=== PATIENT | female | born 1950 | race American Indian/Alaskan Native ===

== ENCOUNTER 2016-09-28 00:18 | Emergency (ER) | payer MEDICARE ==
[2016-09-28] MEDS ORDERED: CATAPRES ONE (00:46)
[2016-09-28] MEDS ORDERED: CATAPRES PO ONE (01:00)
[2016-09-28 01:15] LABS: Eosinophils % (Auto) 1.5 % (0.0-4.3); Hematocrit 41.6 % (30.3-42.9); Hemoglobin 13.7 gm/dl (10.1-14.3); Mean Corpuscular HGB Conc 33 % (30-34); Mean Corpuscular Hemoglobin 28 pg (28-32); Mean Corpuscular Volume 84 fl (79-97); Platelet Count 202 K/mm3 (140-440); Red Blood Count 4.97 M/mm3 (3.65-5.03); Red Cell Distribution Width 15.3 % (13.2-15.2); White Blood Count 5.4 K/mm3 (4.5-11.0)
[2016-09-28 01:26] LABS: Partial Thromboplastin Time 31.8 Sec. (24.2-36.6)
[2016-09-28 01:38] LABS: Alanine Aminotransferase 31 units/L (7-56); Albumin 3.7 g/dL (3.9-5); Albumin/Globulin Ratio 0.9 %; Alkaline Phosphatase 91 units/L (35-129); Anion Gap 16 mmol/L; BUN/Creatinine Ratio 8.88; Blood Urea Nitrogen 8 mg/dL (7-17); Carbon Dioxide 25 mmol/L (22-30); Chloride 97.3 mmol/L (98-107); Glucose 397 mg/dL (65-100); Lipase 48 units/L (13-60); Potassium 4.1 mmol/L (3.6-5.0); Sodium 134 mmol/L (137-145); Total Protein 7.9 g/dL (6.3-8.2)
[2016-09-28 02:39] LABS: Bacteria,Urine 1+ /HPF (Negative)
[2016-09-28 02:47] LABS: Bilirubin,Urine NEG (Negative); Blood,Urine NEG (Negative); Ketones,Urine NEG (Negative); Leukocyte Esterase,Urine SM (Negative); Mucus,Urine FEW /HPF; Nitrite,Urine NEG (Negative); Protein,Urine <15 mg/dL mg/dL (Negative); Urobilinogen,Urine < 2.0 mg/dL (<2.0)
[2016-09-28 03:09] VITALS: BP 194/91
== END 2016-09-28 01:15 | disposition left against medical advice (07) ==
LOC: EDBD → ED 00:18
DX: I10 Essential (primary) hypertension (principal); Z53.21 Procedure and treatment not carried out due to patient leaving prior to being seen by health care provider
CPT/HCPCS: 36415; 80053; 81001; 83690; 84484; 85025; 85610; 85730; 93005; 93010

== ENCOUNTER 2017-03-11 13:55 | Outpatient (CLI) | payer MEDICARE ==
--- NOTE | 2017-03-11 14:14 | XRay Report ---
RIGHT SHOULDER: Pain. Routine views demonstrate normal bony and soft tissue structures with normal joint alignment of the shoulder. IMPRESSION: Normal study.
--- NOTE | 2017-03-11 14:46 | XRay Report ---
Bilateral wrists, 4 views of each: Both wrists demonstrate unremarkable carpal and long bones with good preservation of the cartilaginous spaces. The bones are well-mineralized with smooth margins. Normal alignment. No evidence of soft tissue swelling or effusions. Impression: Normal exam bilaterally.
== END 2017-03-11 13:56 | disposition home or self-care (01) ==
LOC: SPVIMAG 13:55
PROVIDERS: ATTEND Orthopaedic Surgery
DX: M25.531 Pain in right wrist (principal); M25.532 Pain in left wrist; M25.511 Pain in right shoulder

== ENCOUNTER 2021-05-04 11:37 | Emergency (ER) | payer MEDICARE ==
--- NOTE | 2021-05-04 12:53 | Emergency Department Report ---
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 At her baseline patient sats approxininety 5% on 2 L of home oxygen. She was satting 77% on room air which only increased to 83% on 2 L so O2 saturation increased to 5 L. Patient's T-max was 104.8 at 3 AM. It was also noticed that patient had a cough productive of bloody sputum today. Patient is on several medications including diuretics and Eliquis 5 mg twice daily. No previous history of PE/DVT reported. Patient has been on home oxygen for the last 6 months since discharge from [facility] after her last stroke. Family member at bedside denies no history of primary lung disease. Patient does not currently take bronchodilators at home. Patient was empirically started on antibiotics by hospitalist which have not yet been started. She was encouraged to come to the ER to receive a chest x-ray to evaluate for pneumonia. Patient is unvaccinated for Covid - Related Data Home Medications Medication Instructions Recorded Confirmed Last Taken Amlodipine Besylate 1 tab PO DAILY 03/24/14 05/04/21 05/03/21 Carvedilol 2 tab PO BID 03/24/14 05/04/21 05/03/21 Clopidogrel Bisulfate [Clopidogrel] 1 tab PO DAILY 03/24/14 05/04/21 05/03/21 Furosemide 1 tab PO DAILY PRN 03/24/14 05/04/21 03/28/14 Metformin HCl [Metformin] 1 tab PO DAILY 03/24/14 05/04/21 05/03/21 Aspirin [Aspirin BABY CHEW TAB] 81 mg PO QDAY 03/28/14 05/04/21 05/03/21 Apixaban [Eliquis] 1 tab PO BID 05/04/21 05/04/21 05/03/21 Ascorbic Acid [Vitamin C] 1 tab PO DAILY 05/04/21 05/04/21 05/03/21 Oxycodone HCl/Acetaminophen 1 tab PO TID PRN 05/04/21 05/04/21 Unknown [Oxycodone-Acetaminophen 10-325] Vitamin D3 50,000UNIT CAP 1 cap PO 1XW 05/04/21 05/04/21 Unknown Allergies Allergy/AdvReac Type Severity Reaction Status Date / Time amoxicillin [Amoxicillin] Allergy Unknown Verified 03/24/14 13:13 ibuprofen Allergy Unknown Verified 05/04/21 12:30 Penicillins Allergy Unknown Verified 03/24/14 13:13 ED Review of Systems ROS: Stated complaint: fAMILY REQUESTING XRAY Other details as noted in HPI Comment: All other systems reviewed and negative ED Past Medical Hx - Past Medical History Hx Hypertension: Yes (on meds. taken this am) Hx Congestive Heart Failure: Yes Hx Diabetes: Yes Hx Renal Disease: No Hx Asthma: Yes (no inhaler use) Additional medical history: Atrial fibrillation - Surgical History Hx Breast Surgery: Yes - Social History Smoking Status: Never Smoker - Medications Home Medications: Home Medications Medication Instructions Recorded Confirmed Last Taken Type Amlodipine Besylate 1 tab PO DAILY 03/24/14 05/04/21 05/03/21 History Carvedilol 2 tab PO BID 03/24/14 05/04/21 05/03/21 History Clopidogrel Bisulfate [Clopidogrel] 1 tab PO DAILY 03/24/14 05/04/21 05/03/21 History Furosemide 1 tab PO DAILY PRN 03/24/14 05/04/21 03/28/14 History Metformin HCl [Metformin] 1 tab PO DAILY 03/24/14 05/04/21 05/03/21 History Aspirin [Aspirin BABY CHEW TAB] 81 mg PO QDAY 03/28/14 05/04/21 05/03/21 History Apixaban [Eliquis] 1 tab PO BID 05/04/21 05/04/21 05/03/21 History Ascorbic Acid [Vitamin C] 1 tab PO DAILY 05/04/21 05/04/21 05/03/21 History Oxycodone HCl/Acetaminophen 1 tab PO TID PRN 05/04/21 05/04/21 Unknown History [Oxycodone-Acetaminophen 10-325] Vitamin D3 50,000UNIT CAP 1 cap PO 1XW 05/04/21 05/04/21 Unknown History ED Physical Exam - General Limitations: No Limitations - Other Other exam information: General: No acute distress Head: Atraumatic Eyes: normal appearance ENT: Moist mucous membranes Neck: Normal appearance, no midline tenderness Chest: Clear to auscultation bilaterally CV: Regular rate and rhythm Abdomen: Soft, normal bowel sounds, nontender, nondistended, no rebound or guarding Back: Normal inspection Extremity: Normal inspection, full range of motion Neuro: Alert O x 3, no facial asymmetry, speech clear, mild right arm and leg weakness compared to the left Psych: Appropriate behavior Skin: No rash ED Course Vital Signs 05/04/21 05/04/21 05/04/21 11:39 12:24 12:27 Temperature 99.4 F Pulse Rate 108 H 93 H Respiratory 18 15 20 Rate Blood Pressure 160/80 Blood Pressure 153/92 [Left] O2 Sat by Pulse 100 98 98 Oximetry 05/04/21 05/04/21 05/04/21 12:30 12:46 13:00 Temperature Pulse Rate 88 88 Respiratory 16 17 16 Rate Blood Pressure 148/82 148/82 160/87 Blood Pressure [Left] O2 Sat by Pulse 98 98 98 Oximetry 05/04/21 05/04/21 05/04/21 13:16 13:30 13:46 Temperature Pulse Rate 85 91 H 89 Respiratory 17 16 14 Rate Blood Pressure 160/87 170/86 170/86 Blood Pressure [Left] O2 Sat by Pulse 97 100 98 Oximetry ED Medical Decision Making - Lab Data Result diagrams: 05/04/21 13:20 05/04/21 13:20 Lab Results 05/04/21 05/04/21 05/04/21 Range/Units 13:20 13:20 13:20 WBC 2.0 L (4.5-11.0) K/mm3 RBC 4.37 (3.65-5.03) M/mm3 Hgb 12.1 (10.1-14.3) gm/dl Hct 37.9 (30.3-42.9) % MCV 87 (79-97) fl MCH 28 (28-32) pg MCHC 32 (30-34) % RDW 17.1 H (13.2-15.2) % Plt Count 119 L (140-440) K/mm3 WBC Morphology PT (12.2-14.9) Sec. INR (0.87-1.13) APTT (24.2-36.6) Sec. Sodium 141 (137-145) mmol/L Potassium 3.3 L (3.6-5.0) mmol/L Chloride 97.5 L (98-107) mmol/L Carbon Dioxide 31 H (22-30) mmol/L Anion Gap 16 mmol/L BUN 6 L (7-17) mg/dL Creatinine 0.6 (0.6-1.2) mg/dL Estimated GFR > 60 ml/min BUN/Creatinine Ratio 10 % Glucose 97 (65-100) mg/dL Lactic Acid 0.90 (0.7-2.0) mmol/L Calcium 8.0 L (8.4-10.2) mg/dL Total Bilirubin 0.40 (0.1-1.2) mg/dL AST 43 H (5-40) units/L ALT 23 (7-56) units/L Alkaline Phosphatase 58 (35-129) units/L NT-Pro-B Natriuret Pep (0-900) pg/mL Total Protein 6.3 (6.3-8.2) g/dL Albumin 3.2 L (3.9-5) g/dL Albumin/Globulin Ratio 1.0 % 05/04/21 05/04/21 05/04/21 Range/Units 13:20 13:20 13:20 WBC (4.5-11.0) K/mm3 RBC (3.65-5.03) M/mm3 Hgb (10.1-14.3) gm/dl Hct (30.3-42.9) % MCV (79-97) fl MCH (28-32) pg MCHC (30-34) % RDW (13.2-15.2) % Plt Count (140-440) K/mm3 WBC Morphology TNR PT 14.7 (12.2-14.9) Sec. INR 1.04 (0.87-1.13) APTT 37.1 H (24.2-36.6) Sec. Sodium (137-145) mmol/L Potassium (3.6-5.0) mmol/L Chloride (98-107) mmol/L Carbon Dioxide (22-30) mmol/L Anion Gap mmol/L BUN (7-17) mg/dL Creatinine (0.6-1.2) mg/dL Estimated GFR ml/min BUN/Creatinine Ratio % Glucose (65-100) mg/dL Lactic Acid (0.7-2.0) mmol/L Calcium (8.4-10.2) mg/dL Total Bilirubin (0.1-1.2) mg/dL AST (5-40) units/L ALT (7-56) units/L Alkaline Phosphatase (35-129) units/L NT-Pro-B Natriuret Pep 1644 H (0-900) pg/mL Total Protein (6.3-8.2) g/dL Albumin (3.9-5) g/dL Albumin/Globulin Ratio % - EKG Data -: EKG Interpreted by Me (Atrial fibrillation rate [address] elevation MS) - EKG Data When compared to previous EKG there are: changes noted - Radiology Data Radiology results: report reviewed CHEST 1 VIEW 05/04/2021 1:00 PM INDICATION / CLINICAL INFORMATION: cough, covid, 02 dependent. COMPARISON: None available. FINDINGS: SUPPORT DEVICES: None. HEART / MEDIASTINUM: No significant abnormality. LUNGS / PLEURA: No significant pulmonary or pleural abnormality. No pneumothorax. ADDITIONAL FINDINGS: No significant additional findings. IMPRESSION: 1. No acute findings. - Medical Decision Making 71-year-old female presents to the hospital Covid positive for cough and decrease her oxygen at home. Upon arrival her O2 sat remained in the 90s with s upplemental oxygen. On 2 L nasal cannula oxygen sat remained 95 to 96%. This contradicts values obtained at home. Daughter states they do have a very long oxygen to which could contribute to low O2 readings at home. Patient has been asymptomatic during ED stay and denies shortness of breath or pain. No infiltrate identified on chest x-ray. Other labs fairly unremarkable other than mild leukopenia. Patient symptoms likely secondary to viral secondary secondary to Covid. Patient is already anticoagulated with Eliquis secondary to atrial fibrillation and multiple strokes. Mild hypokalemia noted and patient received 1 dose of supplemental potassium. Case discussed with patient's daught er who voices understanding. Patient does not meet criteria for admission and may be discharged back home with continued monitoring via hospice. Critical Care Time: No Critical care attestation.: If time is entered above; I have spent that time in minutes in the direct care of this critically ill patient, excluding procedure time. ED Disposition Clinical Impression: COVID-19, COVID-19 vaccination not done, O2 dependent, Chronic anticoagulation, Hospice care patient Disposition: HOME / SELF CARE / HOMELESS Is pt being admited?: No Does the pt Need Aspirin: No Condition: Stable Instructions: COVID-19, Home Oxygen Use, Adult Additional Instructions: Continue to monitor your oxygen at home. Follow-up with your doctor. return if symptoms worsen as indicated by your discharge instructions. Referrals: DARRYL FRANKEL [Other] - 3-5 Days Time of Disposition: 15:41
--- NOTE | 2021-05-04 13:31 | XRay Report ---
CHEST 1 VIEW 05/04/2021 1:00 PM INDICATION / CLINICAL INFORMATION: cough, covid, 02 dependent. COMPARISON: None available. FINDINGS: SUPPORT DEVICES: None. HEART / MEDIASTINUM: No significant abnormality. LUNGS / PLEURA: No significant pulmonary or pleural abnormality. No pneumothorax. ADDITIONAL FINDINGS: No significant additional findings. IMPRESSION: 1. No acute findings. Signer Name: Mj Reardon MD Signed: 05/04/2021 1:27 PM Workstation Name: [id number]
[2021-05-04 14:28] LABS: Hematocrit 37.9 % (30.3-42.9); Hemoglobin 12.1 gm/dl (10.1-14.3); Mean Corpuscular HGB Conc 32 % (30-34); Mean Corpuscular Volume 87 fl (79-97); Platelet Count 119 K/mm3 (140-440); Red Blood Count 4.37 M/mm3 (3.65-5.03); Red Cell Distribution Width 17.1 % (13.2-15.2)
[2021-05-04 14:37] LABS: INR 1.04 (0.87-1.13)
[2021-05-04 14:38] LABS: Partial Thromboplastin Time 37.1 Sec. (24.2-36.6)
[2021-05-04 14:55] LABS: Alanine Aminotransferase 23 units/L (7-56); Albumin 3.2 g/dL (3.9-5); Blood Urea Nitrogen 6 mg/dL (7-17); Hemolysis Index 5
[2021-05-04 15:01] LABS: BUN/Creatinine Ratio 10
[2021-05-04] MEDS ORDERED: POTASSIUM CHLORIDE ER 20 MEQ TAB PO ONE (15:08)
[2021-05-04 15:40] LABS: Anisocytosis 1+; Total Cells Counted 100
[2021-05-04] MEDS ORDERED: ONDANSETRON 4 MG ODT TAB PO ONE (21:13)
[2021-05-04] MEDS ORDERED: KETOROLAC 30 MG/1 ML INJ IV ONE (22:27)
[2021-05-05 03:36] VITALS: BP 123/75
--- NOTE | 2021-05-05 12:03 | Electrocardiograph Report ---
[facility] Test Date: 2021-05-04 Test Time: 13:30:55 Pat Name: AFSHAN SOLIS Department: Room: Gender: F Safety Lead: Quirky : 1950 Requested By: BEST TELLO Order Number: [id number] Reading MD: Leonel Sena Measurements Intervals [place] Rate: 87 P: SC: QRS: -13 QRSD: 91 T: -13 QT: 420 QTc: 509 Interpretive Statements Atrial fibrillation Multiple ventricular premature complexes Prolonged QT interval No previous ECG available for comparison Electronically Signed On 05-05-2021 12:02:44 EST by Leonel Sena
== END 2021-05-05 06:21 | disposition home or self-care (01) ==
LOC: ED 11:37
DX: U07.1 COVID-19 (principal); Z99.81 Dependence on supplemental oxygen; Z79.01 Long term (current) use of anticoagulants; Z51.5 Encounter for palliative care; I10 Essential (primary) hypertension; E11.8 Type 2 diabetes mellitus with unspecified complications; Z86.79 Personal history of other diseases of the circulatory system; Z88.0 Allergy status to penicillin; Z88.6 Allergy status to analgesic agent
CPT/HCPCS: 36415; 71045; 80053; 82140; 83880; 85007; 85025; 85610; 85730; 87040; 93005; 99284; J3490; Q0162